=== PATIENT | female | born 1950 | race Caucasian/White ===

== ENCOUNTER 2017-06-01 22:00 | Emergency (ER) | payer MEDICARE, OTHER ==
[~2017-06-01] VITALS: Ht 160 cm; Wt 96.2 kg
[~2017-06-01 22:00] MED LIST: ALBU90OI6 INH; ALPRAZOLAM0.5 MG PO; AMIT50 PO; AMIT75; AMIT75 PO; ASPI81EC PO; Aspirin EC81 MG; BUPR150T2; CALCIUM 500 +1 EAC2 PO; CYCL10 PO; DOXY100 PO; ESCI10; FLUSAL2505 IH; FLUSAL2505 INH; HYDCHL25 PO; Hydrochlorothia25 MG PO; MONT10T PO; Multiple Vitam1 EAC1 PO; NABU750; NABU750 PO; Norco 5-325 Ta1 EACH PO; OXYACE5T PO; Omeprazole20 M1; PRAV10 PO; PRAV20 PO; Pravachol40 MG PO; TRIAOI; Vitamin D2000 UNIT PO
[2017-06-01 23:00] LABS: BASOPHILS ABSOLUTE AUTO 0.02 K/mm3 (0.00-0.23); BASOPHILS PERCENT AUTO 0 % (0-2); EOSINOPHILS ABSOLUTE AUTO 0.06 K/mm3 (0.00-0.68); EOSINOPHILS PERCENT AUTO 1 % (0-6); Hematocrit 40.6 % (33.0-51.0); Hemoglobin 13.5 g/dL (11.5-16.0); IMMATURE GRAN ABSOLUTE AUTO 0.02 K/mm3 (0.00-0.10); IMMATURE GRAN PERCENT AUTO 0 % (0-1); LYMPHOCYTES ABSOLUTE AUTO 2.26 K/mm3 (0.84-5.20); LYMPHOCYTES PERCENT AUTO 25 % (21-46); MONOCYTES ABSOLUTE AUTO 0.58 K/mm3 (0.16-1.47); MONOCYTES PERCENT AUTO 7 % (4-13); Mean Corpuscular HGB 31.6 pg (26.0-34.0); Mean Corpuscular HGB Conc 33.3 g/dL (31.5-36.5); Mean Corpuscular Volume 95 fL (80-100); Mean Platelet Volume 9.6 fL (9.1-12.4); NEUTROPHILS PERCENT AUTO 67 % (41-73); Platelet Count 223 K/mm3 (150-400); RDW Standard Deviation 48.2 fL (35.1-46.3); Red Blood Cell Count 4.27 M/mm3 (3.80-5.20); White Blood Cell Count 8.94 K/mm3 (4.00-11.30)
[2017-06-01 23:16] LABS: Alanine Aminotransfer (ALT/SGP 18 U/L (12-78); Albumin, Blood 3.6 g/dL (3.4-5.0); Albumin/Globulin Ratio 0.8 (0.8-1.8); Alk Phos 90 U/L (50-136); Anion Gap 10 mmol/L (6-16); Aspartate Aminotrans (AST/SGOT 20 U/L (12-37); Bilirubin, Total 0.4 mg/dL (0.1-1.0); Blood Urea Nitrogen 16 mg/dL (8-24); CO2, Blood 23 mmol/L (21-32); Calcium, Blood 9.1 mg/dL (8.5-10.1); Chloride, Blood 107 mmol/L (98-108); Globulin, Blood 4.4 g/dL (2.2-4.0); Glomerular Filtration Rate >60 (60-); Glucose, Blood 133 mg/dL (70-99); Potassium, Blood 3.7 mmol/L (3.5-5.5); Sodium, Blood 140 mmol/L (136-145)
[2017-06-02 02:25] LABS: Source, Urine Clean Catch
[2017-06-02 02:31] LABS: Bilirubin, Urine Neg (Neg); Blood, Urine Neg (Neg); Glucose Qualitative, Urine Neg (Neg); Ketones, Urine Neg (Neg); Leukocyte Esterase, Urine 1+ (Neg); Nitrite, Urine Neg (Neg); Protein, Urine Neg (Neg); Specific Gravity, Urine 1.025 (1.003-1.022); Urobilinogen, Urine NORM (Normal)
[2017-06-02 02:42] LABS: Appearance, Urine Hazy (Clear); Color, Urine Yellow (P-Yellow)
[2017-06-02 02:48] LABS: Bacteria Rare /hpf; Red Blood Cells, Urine 0-2 /hpf (0-2); Squamous Epithelial Cells Not Seen /hpf (Few); White Blood Cells, Urine 0-2 /hpf (0-5)
[2017-06-02] MEDS ORDERED: Norco 10-325 T1 EACH PO (04:00)
[2017-06-02] MEDS ORDERED: Zofran Odt4 MG SL (04:00)
[2018-05-19] MEDS ORDERED: Omeprazole20 M1 PO (13:34)
[2018-05-19] MEDS ORDERED: ALBU90OI (13:36)
[2018-05-19] MEDS ORDERED: SERT50 PO (13:37)
== END 2017-06-02 04:28 | disposition home or self-care (01) ==
LOC: ER 22:00
PROVIDERS: Emergency Medicine
DX: R10.9 Unspecified abdominal pain (principal); J45.909 Unspecified asthma, uncomplicated; Z88.7 Allergy status to serum and vaccine; Z88.8 Allergy status to other drugs, medicaments and biological substances; Z79.899 Other long term (current) drug therapy; Z79.82 Long term (current) use of aspirin; Z90.710 Acquired absence of both cervix and uterus; Z90.49 Acquired absence of other specified parts of digestive tract; Z90.12 Acquired absence of left breast and nipple
CPT/HCPCS: 36415; 74176; 80053; 81001; 83690; 85025; 87077; 87086; 87186; 93005; 93010; 96374; 96375; 96376; 99284; J1170; J2405

== ENCOUNTER 2018-05-20 01:11 | Day surgery (SDC) | payer MEDICARE, OTHER ==
[~2018-05-20] VITALS: Ht 157.5 cm; Wt 97.0 kg
[~2018-05-20 01:11] MED LIST changes: +ALBU90OI; +Norco 10-325 T1 EACH PO; +Omeprazole20 M1 PO; +SERT50 PO; +Zofran Odt4 MG SL
[2018-05-20] MEDS ORDERED: TRAM50 PO (06:24)
[2018-05-20 06:38] LABS: BASOPHILS ABSOLUTE AUTO 0.04 K/mm3 (0.00-0.23); BASOPHILS PERCENT AUTO 1 % (0-2); EOSINOPHILS ABSOLUTE AUTO 0.17 K/mm3 (0.00-0.68); EOSINOPHILS PERCENT AUTO 2 % (0-6); Hematocrit 38.8 % (33.0-51.0); Hemoglobin 12.4 g/dL (11.5-16.0); IMMATURE GRAN ABSOLUTE AUTO 0.02 K/mm3 (0.00-0.10); IMMATURE GRAN PERCENT AUTO 0 % (0-1); LYMPHOCYTES ABSOLUTE AUTO 0.92 K/mm3 (0.84-5.20); LYMPHOCYTES PERCENT AUTO 12 % (21-46); MONOCYTES ABSOLUTE AUTO 0.66 K/mm3 (0.16-1.47); MONOCYTES PERCENT AUTO 9 % (4-13); Mean Corpuscular HGB 30.9 pg (26.0-34.0); Mean Corpuscular Volume 97 fL (80-100); Mean Platelet Volume 9.3 fL (9.1-12.4); NEUTROPHILS PERCENT AUTO 77 % (41-73); Platelet Count 265 K/mm3 (150-400); RDW Coefficient Variation 12.4 % (11.7-14.2); RDW Standard Deviation 44.2 fL (35.1-46.3); Red Blood Cell Count 4.01 M/mm3 (3.80-5.20); White Blood Cell Count 7.71 K/mm3 (4.00-11.30)
[2018-05-20 06:51] LABS: International Normalized Ratio 1.04; Prothrombin Time Results 10.7 Sec (9.7-11.5)
[2018-05-20 06:57] LABS: Alanine Aminotransfer (ALT/SGP 16 U/L (12-78); Albumin, Blood 2.9 g/dL (3.4-5.0); Albumin/Globulin Ratio 0.6 (0.8-1.8); Alk Phos 89 U/L (50-136); Anion Gap 9 mmol/L (6-16); Aspartate Aminotrans (AST/SGOT 23 U/L (12-37); Bilirubin, Total 0.5 mg/dL (0.1-1.0); Blood Urea Nitrogen 10 mg/dL (8-24); Bun/Creatinine Ratio 16.9 (12.0-20.0); CO2, Blood 25 mmol/L (21-32); Calcium, Blood 8.9 mg/dL (8.5-10.1); Chloride, Blood 106 mmol/L (98-108); Creatinine, Blood 0.59 mg/dL (0.40-1.00); Globulin, Blood 5.1 g/dL (2.2-4.0); Glomerular Filtration Rate >60 (60-); Glucose, Blood 77 mg/dL (70-99); Potassium, Blood 3.5 mmol/L (3.5-5.5); Sodium, Blood 140 mmol/L (136-145)
== END 2018-05-20 12:06 | disposition home or self-care (01) ==
LOC: MHTC 01:11
PROVIDERS: Internal Medicine Cardiovascular Disease
PROC: B211YZZ Fluoroscopy of Multiple Coronary Arteries using Other Contrast (ICD-10-PCS; principal; 2018-05-20)
DX: I35.0 Nonrheumatic aortic (valve) stenosis (principal); R93.1 Abnormal findings on diagnostic imaging of heart and coronary circulation; R42 Dizziness and giddiness; E66.9 Obesity, unspecified; E78.00 Pure hypercholesterolemia, unspecified; I10 Essential (primary) hypertension; E78.5 Hyperlipidemia, unspecified
CPT/HCPCS: 80053; 85025; 85610; 93454; 99152; 99153; C1769; C1894; J1644; J2250; J3010; J7030; Q9967

== ENCOUNTER 2018-12-23 08:29 | Emergency (ER) | payer MEDICARE, OTHER ==
[~2018-12-23] VITALS: Ht 167.6 cm; Wt 97.5 kg
[~2018-12-23 08:29] MED LIST changes: +TRAM50 PO
[2018-12-23 09:12] LABS: BASOPHILS ABSOLUTE AUTO 0.02 K/mm3 (0.00-0.23); BASOPHILS PERCENT AUTO 0 % (0-2); EOSINOPHILS ABSOLUTE AUTO 0.13 K/mm3 (0.00-0.68); EOSINOPHILS PERCENT AUTO 2 % (0-6); IMMATURE GRAN ABSOLUTE AUTO 0.02 K/mm3 (0.00-0.10); IMMATURE GRAN PERCENT AUTO 0 % (0-1); LYMPHOCYTES ABSOLUTE AUTO 0.78 K/mm3 (0.84-5.20); LYMPHOCYTES PERCENT AUTO 10 % (21-46); MONOCYTES ABSOLUTE AUTO 0.58 K/mm3 (0.16-1.47); MONOCYTES PERCENT AUTO 8 % (4-13); Mean Corpuscular HGB 30.6 pg (26.0-34.0); Mean Corpuscular HGB Conc 32.3 g/dL (31.5-36.5); Mean Corpuscular Volume 95 fL (80-100); Mean Platelet Volume 9.5 fL (9.1-12.4); NEUTROPHILS ABSOLUTE AUTO 5.96 K/mm3 (1.96-9.15); NEUTROPHILS PERCENT AUTO 80 % (41-73); Platelet Count 376 K/mm3 (150-400); RDW Coefficient Variation 13.8 % (11.7-14.2); RDW Standard Deviation 47.4 fL (35.1-46.3); Red Blood Cell Count 3.27 M/mm3 (3.80-5.20); White Blood Cell Count 7.49 K/mm3 (4.00-11.30)
[2018-12-23 09:35] LABS: Alanine Aminotransfer (ALT/SGP 11 U/L (12-78); Albumin, Blood 3.3 g/dL (3.4-5.0); Albumin/Globulin Ratio 0.7 (0.8-1.8); Alk Phos 126 U/L (50-136); Anion Gap 9 mmol/L (6-16); Aspartate Aminotrans (AST/SGOT 20 U/L (12-37); Bilirubin, Total 0.6 mg/dL (0.1-1.0); Blood Urea Nitrogen 7 mg/dL (8-24); Bun/Creatinine Ratio 12.6 (12.0-20.0); CO2, Blood 26 mmol/L (21-32); Calcium, Blood 8.6 mg/dL (8.5-10.1); Chloride, Blood 104 mmol/L (98-108); Creatinine, Blood 0.56 mg/dL (0.40-1.00); Globulin, Blood 4.5 g/dL (2.2-4.0); Glomerular Filtration Rate >60 (60-); Glucose, Blood 103 mg/dL (70-99); Potassium, Blood 2.9 mmol/L (3.5-5.5); Sodium, Blood 139 mmol/L (136-145); Total Protein, Blood 7.8 g/dL (6.4-8.2); Troponin I 0.022 ng/mL (0.000-0.040)
[2018-12-23] MEDS ORDERED: K-Dur20 MEQ PO ×2 (11:20→11:39)
[2018-12-23] MEDS ORDERED: Lasix20 MG PO (11:39)
== END 2018-12-23 11:42 | disposition home or self-care (01) ==
LOC: ER 08:29
PROVIDERS: Emergency Medicine
DX: I48.91 Unspecified atrial fibrillation (principal); E87.6 Hypokalemia; D64.9 Anemia, unspecified; I50.9 Heart failure, unspecified; I95.9 Hypotension, unspecified; J45.909 Unspecified asthma, uncomplicated; Z88.8 Allergy status to other drugs, medicaments and biological substances; Z79.899 Other long term (current) drug therapy
CPT/HCPCS: 36415; 71046; 80053; 83735; 83880; 84484; 85025; 92960; 93005; 93010; 96374-59; 99285-25; J1940; J2704; J7030

== ENCOUNTER 2019-02-19 10:11 | Emergency (ER) | payer MEDICARE, OTHER ==
[~2019-02-19] VITALS: Ht 160 cm; Wt 86.2 kg
[~2019-02-19 10:11] MED LIST changes: +K-Dur20 MEQ PO; +Lasix20 MG PO
[2019-02-19] MEDS ORDERED: Ultram50 MG PO (12:17)
[2019-02-19] MEDS ORDERED: AMIODARONE TAB 200 (12:17)
[2019-02-19] MEDS ORDERED: OMEPRAZOLE CAP 20M (12:17)
[2019-02-19] MEDS ORDERED: ALPRAZOLAM (12:17)
[2019-02-19] MEDS ORDERED: FUROSEMIDE (12:17)
[2019-02-19] MEDS ORDERED: POT CHLORIDE TAB 20M (12:17)
[2019-02-19] MEDS ORDERED: Zoloft100 MG PO (12:17)
[2019-02-19] MEDS ORDERED: Potassium Chlo20 ME1 PO (12:18)
[2019-02-19] MEDS ORDERED: OXYC5 PO (12:18)
[2019-02-19 13:09] LABS: BASOPHILS ABSOLUTE AUTO 0.02 K/mm3 (0.00-0.23); BASOPHILS PERCENT AUTO 0 % (0-2); EOSINOPHILS ABSOLUTE AUTO 0.02 K/mm3 (0.00-0.68); EOSINOPHILS PERCENT AUTO 0 % (0-6); Hematocrit 38.9 % (33.0-51.0); Hemoglobin 12.3 g/dL (11.5-16.0); IMMATURE GRAN ABSOLUTE AUTO 0.03 K/mm3 (0.00-0.10); IMMATURE GRAN PERCENT AUTO 0 % (0-1); LYMPHOCYTES ABSOLUTE AUTO 0.76 K/mm3 (0.84-5.20); LYMPHOCYTES PERCENT AUTO 7 % (21-46); MONOCYTES ABSOLUTE AUTO 0.71 K/mm3 (0.16-1.47); MONOCYTES PERCENT AUTO 7 % (4-13); Mean Corpuscular HGB 29.9 pg (26.0-34.0); Mean Corpuscular HGB Conc 31.6 g/dL (31.5-36.5); Mean Corpuscular Volume 95 fL (80-100); NEUTROPHILS ABSOLUTE AUTO 9.34 K/mm3 (1.96-9.15); NEUTROPHILS PERCENT AUTO 86 % (41-73); Platelet Count 193 K/mm3 (150-400); RDW Coefficient Variation 15.4 % (11.7-14.2); Red Blood Cell Count 4.11 M/mm3 (3.80-5.20); White Blood Cell Count 10.88 K/mm3 (4.00-11.30)
[2019-02-19 13:27] LABS: Alanine Aminotransfer (ALT/SGP 23 U/L (12-78); Albumin, Blood 3.6 g/dL (3.4-5.0); Albumin/Globulin Ratio 0.8 (0.8-1.8); Alk Phos 103 U/L (50-136); Anion Gap 6 mmol/L (6-16); Aspartate Aminotrans (AST/SGOT 41 U/L (12-37); Bilirubin, Total 0.5 mg/dL (0.1-1.0); Blood Urea Nitrogen 18 mg/dL (8-24); Bun/Creatinine Ratio 32.3 (12.0-20.0); CO2, Blood 26 mmol/L (21-32); Calcium, Blood 8.6 mg/dL (8.5-10.1); Chloride, Blood 104 mmol/L (98-108); Creatinine, Blood 0.56 mg/dL (0.40-1.00); Globulin, Blood 4.3 g/dL (2.2-4.0); Glomerular Filtration Rate >60 (60-); Glucose, Blood 101 mg/dL (70-99); Potassium, Blood 3.8 mmol/L (3.5-5.5); Sodium, Blood 136 mmol/L (136-145); Total Protein, Blood 7.9 g/dL (6.4-8.2)
[2019-02-19 14:59] LABS: Source, Urine Clean Catch
[2019-02-19 15:08] LABS: Bilirubin, Urine Neg (Neg); Blood, Urine Neg (Neg); Glucose Qualitative, Urine Neg (Neg); Ketones, Urine 1+ (Neg); Leukocyte Esterase, Urine 2+ (Neg); Nitrite, Urine Neg (Neg); Protein, Urine Neg (Neg); Specific Gravity, Urine 1.015 (1.003-1.022); Urobilinogen, Urine NORM (Normal)
[2019-02-19 15:29] LABS: Appearance, Urine Clear (Clear); Color, Urine Yellow (P-Yellow)
[2019-02-19 15:30] LABS: Bacteria Mod /hpf; Red Blood Cells, Urine Not Seen /hpf (0-2); Squamous Epithelial Cells Mod /hpf (Few)
[2019-02-19] MEDS ORDERED: Norco 5-325 Ta1 EACH PO (15:56)
[2019-02-19] MEDS ORDERED: Zofran4 MG PO (15:56)
== END 2019-02-19 16:13 | disposition home or self-care (01) ==
LOC: ER 10:11
PROVIDERS: Emergency Medicine; Physician Assistant
DX: M79.605 Pain in left leg (principal); Z88.7 Allergy status to serum and vaccine; Z88.8 Allergy status to other drugs, medicaments and biological substances; Z79.899 Other long term (current) drug therapy; Z79.891 Long term (current) use of opiate analgesic
CPT/HCPCS: 36415; 74177; 80053; 81001; 85025; 87086; 93971; 96374-59; 96375; 99284-25; A9270-GY; J1885; J2405; J3010; Q9967

== ENCOUNTER 2022-07-15 09:29 | Day surgery (SDC) | payer MEDICARE, OTHER ==
[~2022-07-15] VITALS: Ht 160 cm; Wt 81.5 kg
[~2022-07-15 09:29] MED LIST changes: +ALPRAZOLAM PO; +AMIODARONE HCL100 M3 PO; +AMIODARONE TAB 200; +ASPI81CH PO; +BUSP5 PO; +DULO60 PO; +FURO40 PO; +FUROSEMIDE; +IBUP200 PO; +MELO7.5 PO; +OMEP20ER PO; +OMEPRAZOLE CAP 20M; +OXYC5 PO; +POT CHLORIDE TAB 20M; +Potassium Chlo20 ME1 PO; -Pravachol40 MG PO; +SERT100 PO; +Ultram50 MG PO; +Zofran4 MG PO
--- NOTE | 2022-07-15 17:10 | NUR ---
SHIFT SUMMARY PATIENT NEW ADMIT TO UNIT FROM PACU POST OP DAY 0 FOR R AMAURY WITH DR BURGOS. ALERT AND ORIENTED AND SITTING UP IN BED. TOLERATING REGULAR DIET AND LIQUIDS. LR RUNNING IN IV. SPINAL IN EFFECT, REPORTS ZERO PAIN. RIGHT HIP WITH AQUACEL C/D/I. POLAR PACK IN PLACE. BILL HOSE SCDS IN PLACE. NO GOODMAN, NO VOID AT THIS TIME. OTHER VSS, RA. 18 G IV IN RIGHT HAND. TWO FMAILY MEMBERS PRESENT IN ROOM DURING ADMISSION. PLEASANT AND COOPERATIVE.
[2022-07-15 17:51] LABS: Source, Urine Clean Catch
[2022-07-15 17:54] LABS: Appearance, Urine Clear (Clear); Bilirubin, Urine Neg (Neg); Blood, Urine Neg (Neg); Color, Urine Yellow (P-Yellow); Glucose Qualitative, Urine 1+ (Neg); Ketones, Urine 3+ (Neg); Leukocyte Esterase, Urine Neg (Neg); Nitrite, Urine Neg (Neg); Protein, Urine Neg (Neg); Urobilinogen, Urine NORM (Normal)
[2022-07-16 06:16] LABS: BASOPHILS ABSOLUTE AUTO 0.01 K/mm3 (0.00-0.23); BASOPHILS PERCENT AUTO 0 % (0-2); EOSINOPHILS ABSOLUTE AUTO 0.01 K/mm3 (0.00-0.68); EOSINOPHILS PERCENT AUTO 0 % (0-6); Hematocrit 29.5 % (33.0-51.0); Hemoglobin 9.6 g/dL (11.5-16.0); IMMATURE GRAN ABSOLUTE AUTO 0.05 K/mm3 (0.00-0.10); IMMATURE GRAN PERCENT AUTO 0 % (0-1); LYMPHOCYTES ABSOLUTE AUTO 1.21 K/mm3 (0.84-5.20); LYMPHOCYTES PERCENT AUTO 8 % (21-46); MONOCYTES ABSOLUTE AUTO 0.87 K/mm3 (0.16-1.47); MONOCYTES PERCENT AUTO 6 % (4-13); Mean Corpuscular HGB 32.4 pg (26.0-34.0); Mean Corpuscular HGB Conc 32.5 g/dL (31.5-36.5); Mean Corpuscular Volume 100 fL (80-100); Mean Platelet Volume 10.3 fL (9.1-12.4); NEUTROPHILS ABSOLUTE AUTO 12.25 K/mm3 (1.96-9.15); NEUTROPHILS PERCENT AUTO 85 % (41-73); Platelet Count 186 K/mm3 (150-400); RDW Coefficient Variation 12.3 % (11.7-14.2); RDW Standard Deviation 44.5 fL (35.1-46.3); Red Blood Cell Count 2.96 M/mm3 (3.80-5.20)
[2022-07-16 06:35] LABS: Bun/Creatinine Ratio 24.4 (12.0-20.0); Creatinine, Blood 0.45 mg/dL (0.40-1.00); Potassium, Blood 3.7 mmol/L (3.5-5.5)
--- NOTE | 2022-07-16 06:47 | NUR ---
TELEPHONE SOLICITOR SUMMARY POD 0 R AMAURY. PT HAS DONE WELL POST OP, AMBULATING TO THE BATHROOM AND VOIDING MULITPLE TIMES THROUGH THE NIGHT. TOLERATING PO INTAKE WITH NO ISSUE. MEDICATED WITH OXYCODONE 10 MG X2 THROUGH THE NIGHT WITH GOOD PAIN RELIEF. PT TO HAVE PHYSICAL THERAPY LATER TODAY. VSS, WILL CONTINUE TO MONITOR.
[2022-07-16] MEDS ORDERED: Percocet 5-3251 EACH PO (10:01)
--- NOTE | 2022-07-16 10:55 | NUR ---
DISCHARGE SUMMARY PT A&OX4, VSS/RA, MOIZ PO, VOIDING WELL, AMB SBA FWW & GB, PAIN MANAGED. DC INS PROVIDED. PT REP UNDERSTANDING THOSE INSTRUCTIONS INCLUDING FU WITH SURGEON, PT OUTPT, FWW AT ALL TIMES, SIT/ICE/ELEVATE WITH SHORT FREQUENT AMB. IV DC'D. LEFT FLOOR VIA WC TO GO HOME WITH SON AND NEICE, WITH ALL PERSONAL POSSESSIONS INCLUDING DC PACKET AND AQUACEL DRESSINGS.
== END 2022-07-16 10:25 | disposition home or self-care (01) ==
LOC: ORSCMMR 09:29 → ORD 11:00 → ORSCMMR 11:00 → ORD 12:00 → SURS 15:38 → ORSCMMR 07-16 10:25 → ORD 08-12 09:15
PROVIDERS: Orthopaedic Surgery; Physician Assistant Surgical
PROC: 0SR90J9 Replacement of Right Hip Joint with Synthetic Substitute, Cemented, Open Approach (ICD-10-PCS; principal; 2022-07-15 13:00)
DX: M16.11 Unilateral primary osteoarthritis, right hip (principal); J45.909 Unspecified asthma, uncomplicated; F41.8 Other specified anxiety disorders; Z79.82 Long term (current) use of aspirin; Z85.3 Personal history of malignant neoplasm of breast; K21.9 Gastro-esophageal reflux disease without esophagitis; Z79.899 Other long term (current) drug therapy
CPT/HCPCS: 27130; 0055T; 36415; 72170; 80048; 81003; 85025; 97110; 97116; 97162; 97530; A9270; C1713; C1776; J0171; J0690; J0735; J1100; J1885; J2250; J2370; J2405; J2704; J2765; J2795; J3010; J7120

== ENCOUNTER 2022-08-30 07:50 | Emergency (ER) | payer MEDICARE, OTHER ==
[~2022-08-30] VITALS: Ht 160 cm; Wt 82.1 kg
[~2022-08-30 07:50] MED LIST changes: +Percocet 5-3251 EACH PO
[2022-08-30 08:27] LABS: BASOPHILS ABSOLUTE AUTO 0.02 K/mm3 (0.00-0.23); BASOPHILS PERCENT AUTO 0 % (0-2); EOSINOPHILS ABSOLUTE AUTO 0.16 K/mm3 (0.00-0.68); EOSINOPHILS PERCENT AUTO 3 % (0-6); Hematocrit 39.3 % (33.0-51.0); Hemoglobin 12.8 g/dL (11.5-16.0); IMMATURE GRAN ABSOLUTE AUTO 0.01 K/mm3 (0.00-0.10); IMMATURE GRAN PERCENT AUTO 0 % (0-1); LYMPHOCYTES ABSOLUTE AUTO 0.98 K/mm3 (0.84-5.20); LYMPHOCYTES PERCENT AUTO 15 % (21-46); MONOCYTES ABSOLUTE AUTO 0.39 K/mm3 (0.16-1.47); MONOCYTES PERCENT AUTO 6 % (4-13); Mean Corpuscular HGB 32.1 pg (26.0-34.0); Mean Corpuscular HGB Conc 32.6 g/dL (31.5-36.5); Mean Corpuscular Volume 99 fL (80-100); Mean Platelet Volume 9.6 fL (9.1-12.4); NEUTROPHILS ABSOLUTE AUTO 4.94 K/mm3 (1.96-9.15); NEUTROPHILS PERCENT AUTO 76 % (41-73); Platelet Count 232 K/mm3 (150-400); RDW Coefficient Variation 13.4 % (11.7-14.2); RDW Standard Deviation 49.1 fL (35.1-46.3); Red Blood Cell Count 3.99 M/mm3 (3.80-5.20)
[2022-08-30 08:49] LABS: Alanine Aminotransfer (ALT/SGP 24 U/L (12-78); Albumin, Blood 3.5 g/dL (3.4-5.0); Albumin/Globulin Ratio 0.8 (0.8-1.8); Alk Phos 90 U/L (50-136); Anion Gap 4 mmol/L (6-16); Aspartate Aminotrans (AST/SGOT 27 U/L (12-37); Bilirubin, Total 0.3 mg/dL (0.1-1.0); Blood Urea Nitrogen 8 mg/dL (8-24); Bun/Creatinine Ratio 16.4 (12.0-20.0); C-REACTIVE PROTEIN, EXT RANGE <0.290 mg/dL (0.000-0.300); CO2, Blood 26 mmol/L (21-32); Calcium, Blood 9.2 mg/dL (8.5-10.1); Chloride, Blood 107 mmol/L (98-108); Creatinine, Blood 0.49 mg/dL (0.40-1.00); Globulin, Blood 4.2 g/dL (2.2-4.0); Glomerular Filtration Rate 99 (60-); Glucose, Blood 115 mg/dL (70-99); Potassium, Blood 3.5 mmol/L (3.5-5.5); Sodium, Blood 137 mmol/L (136-145); Total Protein, Blood 7.7 g/dL (6.4-8.2)
[2022-08-30] MEDS ORDERED: SULTRIDS PO (09:53)
== END 2022-08-30 10:12 | disposition home or self-care (01) ==
LOC: ER 07:50
PROVIDERS: Student in an Organized Health Care Education/Training Program
DX: T81.89XA Other complications of procedures, not elsewhere classified, initial encounter (principal); Y83.8 Other surgical procedures as the cause of abnormal reaction of the patient, or of later complication, without mention of misadventure at the time of the procedure; G89.18 Other acute postprocedural pain; J45.909 Unspecified asthma, uncomplicated
CPT/HCPCS: 36415; 80053; 85025; 85651; 86140; 99283

== ENCOUNTER 2022-09-09 09:37 | Day surgery (SDC) | payer MEDICARE, OTHER ==
[2022-09-09] VITALS (16 sets, daily range): BP systolic 86–147; BP diastolic 38–87
[~2022-09-09] VITALS: Ht 157.5 cm; Wt 80.9 kg
[~2022-09-09 09:37] MED LIST changes: +SULTRIDS PO
--- NOTE | 2022-09-09 11:03 | NUR ---
Wheelchaired into Day Surgery History, Chart, Medications and Allergies reviewed before start of procedure. Pre-Op teaching done. Pt verbalizes understanding.
--- NOTE | 2022-09-09 19:46 | NUR ---
SHIFT SUMMARY POD 0 L AMAURY. ALERT AND ORIENTED. SPINAL IN EFFECT. NOT UP OUT OF BED AT THIS TIME. NO VOID AT THIS TIME. TOLERATING REGULAR DIET AND ORAL LIQUIDS. LR RUNNING AT 70/HR. DENIES PAIN. AQAUCEL C/D/I. BILL, PAS AND POLAR PACK IN PLACE. POST OP VSS. FAMILY PRESENT IN ROOM FOR A COUPLE HOURS. REPORT GIVEN TO SERVICE DISMANTLER RN.
[2022-09-10 05:05] VITALS: BP 132/78
[2022-09-10 05:32] LABS: BASOPHILS ABSOLUTE AUTO 0.02 K/mm3 (0.00-0.23); BASOPHILS PERCENT AUTO 0 % (0-2); EOSINOPHILS PERCENT AUTO 0 % (0-6); Hematocrit 34.1 % (33.0-51.0); IMMATURE GRAN ABSOLUTE AUTO 0.07 K/mm3 (0.00-0.10); IMMATURE GRAN PERCENT AUTO 1 % (0-1); LYMPHOCYTES PERCENT AUTO 8 % (21-46); MONOCYTES ABSOLUTE AUTO 0.93 K/mm3 (0.16-1.47); MONOCYTES PERCENT AUTO 6 % (4-13); Mean Corpuscular HGB 32.1 pg (26.0-34.0); Mean Corpuscular HGB Conc 32.3 g/dL (31.5-36.5); Mean Corpuscular Volume 99 fL (80-100); Mean Platelet Volume 9.6 fL (9.1-12.4); NEUTROPHILS ABSOLUTE AUTO 12.68 K/mm3 (1.96-9.15); NEUTROPHILS PERCENT AUTO 85 % (41-73); Platelet Count 216 K/mm3 (150-400); RDW Coefficient Variation 13.2 % (11.7-14.2); RDW Standard Deviation 48.5 fL (35.1-46.3); Red Blood Cell Count 3.43 M/mm3 (3.80-5.20)
--- NOTE | 2022-09-10 05:41 | NUR ---
SUMMARY S/P L AMAURY, AQUACEL IS C/D/I. AOX4, CALLS APPROPRIATELY. AMBULATES WITH 1 ASSIST GB, FWW. TOLERATES PO INTAKE AND VOIDING WELL. IV IS SALINE LOCKED VSS. PATIENT IS UP IN RECLINER AND DRESSED FOR THERAPY THIS AM. BILL RICH, SCD'S IN PLACE T/O SHIFT. PAIN IS WELL MANAGED AND CALL LIGHT IS IN REACH. WILL REPORT TO ONCOMING NURSE.
[2022-09-10 05:56] LABS: Bun/Creatinine Ratio 29.5 (12.0-20.0); Calcium, Blood 9.2 mg/dL (8.5-10.1); Creatinine, Blood 0.44 mg/dL (0.40-1.00); Potassium, Blood 3.9 mmol/L (3.5-5.5)
[2022-09-10 07:06] VITALS: BP 130/72
[2022-09-10] MEDS ORDERED: ASPI81CH PO (08:39)
--- NOTE | 2022-09-10 09:28 | NUR ---
DISCHARGE NOTE: PATIENT WAS EDUCATED ON DISCHARGE INFORMATION. SHE VERBALIZED UNDERSTANDING OF DISCHARGE INFORMATION AND HAD NO FURTHER QUESTIONS AT THIS TIME. IV WAS TAKEN OUT AND WNL. PAIN IS MANAGED WITH ORAL PAIN MEDICATIONS. HARD PERSCRIPTIONS WERE GIVEN TO SON YESTERDAY WHO GOT THEM FILLED. HER LEFT HIP HAS AN AQUACEL DRESSING THAT IS C/D/I. SHE DENIES NUMBNESS OR TINGLING IN ALL EXTREMITIES. PATIENT IS A SBA WITH FWW AND GAIT BELT. SHE IS DRESSED AND HAS PERSONAL ITEMS IN THE ROOM GATHERED. PATIENT IS WAITING FOR HER SON TO COME AND PICK HER UP TO TAKE HER HOME.
--- NOTE | 2022-09-10 09:48 | NUR ---
PATIENT IS VOIDING AND TOLERATING PO INTAKE. SHE HAS ALL ITEMS IN THE ROOM GATHERED. SHE WAS JUST WHEELCHAIRED OUT TO HER SONS CAR TO BE TAKEN HOME.
== END 2022-09-10 09:40 | disposition home or self-care (01) ==
LOC: ORSCMMR 09:37 → ORD 11:00 → ORSCMMR 11:00 → SURS 17:09 → ORSCMMR 09-10 09:40
PROVIDERS: Orthopaedic Surgery
PROC: 0SRB0J9 Replacement of Left Hip Joint with Synthetic Substitute, Cemented, Open Approach (ICD-10-PCS; principal; 2022-09-09 14:00)
DX: M16.11 Unilateral primary osteoarthritis, right hip (principal); I48.0 Paroxysmal atrial fibrillation; Z86.73 Personal history of transient ischemic attack (TIA), and cerebral infarction without residual deficits; F41.8 Other specified anxiety disorders; E66.9 Obesity, unspecified; Z68.32 Body mass index [BMI] 32.0-32.9, adult; Z79.899 Other long term (current) drug therapy; Z85.3 Personal history of malignant neoplasm of breast; Z79.82 Long term (current) use of aspirin
CPT/HCPCS: 36415; 72170; 80048; 85025; 97110; 97116; 97162; A9270; C1713; C1776; J0171; J0690; J0735; J1100; J1885; J2250; J2370; J2405; J2704; J2795; J3010; J7120

== ENCOUNTER 2024-06-09 06:28 | Day surgery (SDC) | payer MEDICARE, OTHER ==
[2024-06-09] VITALS (18 sets, daily range): BP systolic 92–151; BP diastolic 74–103
[~2024-06-09] VITALS: Ht 160 cm; Wt 91.0 kg
[~2024-06-09 06:28] MED LIST changes: +Lactated Ringer's 1,000 ML IV SCH; +QUETIAPINE FUMA50 M3 PO
[2024-06-09] MEDS ORDERED: propofoL 40 ML IV ONE (08:02)
--- NOTE | 2024-06-09 08:10 | NUR ---
06/09/24 0810 Chraito Patel CONFIRMED AND REVIEWED H&P, MEDCICATIONS, ALLERGIES, MEDICAL HISTORY, RESPIRATORY HISTORY, VITAL SIGNS, 3-LEAD EKG, CONSENTS, AND PHYSICIAN ORDERS. PATIENT CONFIRMS NPO STATUS AND AGREES WITH SCHEDULED PROCEDURE. MONITOR INTACT WITH CONTINUOUS PULSE OXIMETRY, CAPNOGRAPHY, 3-LEAD EKG, INTERMITTENT BP. SUPPLEMENTAL O2 TO BE TITRATED THROUGHOUT PROCEDURE TO MAINTAIN O2 SATURATION ABOVE 90%. PATIENT DETERMINED TO BE ASA APPROPRIATE FOR PROPOFOL SEDATION PRIOR TO START OF PROCEDURE BY DR. GARCIA.
--- NOTE | 2024-06-09 08:49 | NUR ---
DR GARCIA TO DISCUSS CASE, REPORTS SKIP 5/YEARS.
--- NOTE | 2024-06-09 09:08 | NUR ---
Patient up to Ambulate independently. Gait steady. Discharge instructions reviewed with patient. Patient verbalizes understanding. Copy given to patient to take home. Patient States Post-Procedure ride home has been arranged. Discharged via wheelchair to private car for ride home. PT A/O. TOLERATING PO. REPORTS READY TO GO HOME.
== END 2024-06-09 09:11 | disposition home or self-care (01) ==
LOC: ORSCMMR 06:28 → ORD 08:30 → ORSCMMR 08:30
PROVIDERS: Internal Medicine Gastroenterology
PROC: 0DBK8ZX Excision of Ascending Colon, Via Natural or Artificial Opening Endoscopic, Diagnostic (ICD-10-PCS; principal; 2024-06-09 08:30)
DX: Z12.11 Encounter for screening for malignant neoplasm of colon (principal); K63.5 Polyp of colon; K57.30 Diverticulosis of large intestine without perforation or abscess without bleeding; Z95.2 Presence of prosthetic heart valve; Z85.3 Personal history of malignant neoplasm of breast; Z96.643 Presence of artificial hip joint, bilateral; E78.00 Pure hypercholesterolemia, unspecified; J45.909 Unspecified asthma, uncomplicated; I10 Essential (primary) hypertension; Z79.82 Long term (current) use of aspirin; Z79.899 Other long term (current) drug therapy
CPT/HCPCS: 88305; J2704; J7120